=== PATIENT | female | born 1970 | race Caucasian/White ===

== ENCOUNTER 2025-07-10 08:55 | Emergency (ER) | payer MEDICAID, SELFPAY ==
[2025-07-10 08:57] VITALS: BMI 27.4
[2025-07-10 09:12] VITALS: BP 137/94; PULSE 91; RESP 16; TEMP 36.8; O2SAT 96
--- NOTE | 2025-07-10 09:30 | EDRME_ITS ---
Rapid Medical Screening Exam FORMERLY [facility], [facility] Arrival date/time: 07/10/25 08:55 Chief Complaint: Abdominal Pain Time Seen by Provider: 07/10/25 09:22 Vital signs: Vital Signs Temperature 98.3 F 07/10/25 09:12 Pulse Rate 91 07/10/25 09:12 Respiratory Rate 16 07/10/25 09:12 Blood Pressure 137/94 H 07/10/25 09:12 Pulse Oximetry (%) 96 07/10/25 09:12 Oxygen Delivery Method Room Air 07/10/25 09:12 E Narrative: 54-year-old female complaining of 1 week of abdominal pain and cramping. Had diarrhea and fever approximately 1 week ago. With intermittent cramping since. However today had a very sharp pain and had to blood clots from her rectum,. No history of bowel surgery. Last fever was 7 days ago. No longer vomiting. Exam: Diffuse TTP Clinical Impression: Diverticulitis versus colitis versus infectious diarrhea
--- NOTE | 2025-07-10 09:31 | XR_ITS ---
Examination: CT abdomen with intravenous contrast CT pelvis with intravenous contrast 2-D coronal reconstructions 2-D sagittal reconstructions Date and time of exam: July 10, 2025, 1243 hours INDICATIONS: Left lower abdominal pain diarrhea and rectal bleeding today COMPARISON: November 24, 2017. CTDI: vol (mGy) 13.1 DLP: (mGycm) 703 Technique: Multiple axial sections of the abdomen and pelvis have been obtained. 64 slice high-resolution scanner used. 3 mm axial sections have been obtained, post intravenous injection 60 cc Isovue 370 2-D sagittal, coronal reconstructions obtained. Low dose protocols were performed. One or more of the following dose reduction techniques were used; automated exposure control, adjustment of the mA and/or KV according to patient size, use of iterative reconstruction technique. Findings: 15 mm splenic lesion Liver is mildly irregular in contour No gallstones No pancreatic or adrenal mass Moderate renal scarring Minimal dilatation calyces left kidney minimal wall thickening left ureter, no ureteral calculi Normal appendix Scattered colonic diverticulosis, no diverticulitis There is a nonspecific colitis pattern involving rectosigmoid and rectum, proctitis No pelvic mass Urinary bladder intact Significant osteopenia with advanced degenerative disc disease L4-L5 IMPRESSION: Recommend splenic ultrasound to assess the 15 mm splenic lesion Suspicious for left urinary tract infection Normal appendix Significant nonspecific colitis pattern involving rectosigmoid as well as proctitis pattern
[2025-07-10 09:56] LABS: Basophils # (Auto) 0.1 Thou/mm3 (0.0-0.2); Basophils % (Auto) 1 % (0-2.5); Eosinophils # (Auto) 0.2 Thou/mm3 (0.0-0.5); Eosinophils % (Auto) 4 % (0-10); Hematocrit 46.1 % (36.0-46.0); Hemoglobin 15.3 g/dL (12.0-16.0); Immature Granulocytes Auto 0.01 Thou/mm3 (0.00-0.00); Lymphocytes # (Auto) 1.3 Thou/mm3 (1.0-4.8); Lymphocytes % (Auto) 25 % (10-50); Mean Corpuscular HGB Conc 33.2 g/dl (31.0-37.0); Mean Corpuscular Hemoglobin 29.7 pg (25.0-35.0); Mean Corpuscular Volume 90 fL (80-100); Monocytes # (Auto) 0.6 Thou/mm3 (0.0-0.8); Monocytes % (Auto) 11 % (0-12); Neutrophils # (Auto) 3.1 Thou/mm3 (1.8-7.7); Neutrophils % (Auto) 59 % (37-80); Nucleated Red Blood Cell # 0.00 Thou/mm3 (0.00-0.00); Nucleated Red Blood Cell % 0 /100 WBC (0); Platelet Count 238 Thou/mm3 (140-440); RDW Standard Deviation 42.8 fL (36.4-46.3); Red Blood Count 5.15 Miln/mm3 (4.00-5.20); White Blood Count 5.3 Thou/mm3 (3.6-11.0)
[2025-07-10 10:15] LABS: Alanine Aminotransferase 21 U/L (10-49); Albumin, Serum 5.0 gm/dL (3.5-5.0); Albumin/Globulin Ratio 1.9 (1.2-2.2); Alkaline Phosphatase 76 U/L (46-116); Anion Gap 9 (7-16); Aspartate Amino Transferase 28 U/L (0-34); BUN/Creatinine Ratio 11 Ratio (12-20); Bilirubin,Total 0.7 mg/dL (0.3-1.2); Blood Urea Nitrogen 17 mg/dL (9-23); Calcium 9.8 mg/dL (8.3-10.6); Calcium (Corrected) 9.8 mg/dL (8.5-10.1); Carbon Dioxide 30.6 mMol/L (20.0-31.0); Chloride 102 mMol/L (98-107); Creatinine (Component) 1.5 mg/dL (0.6-1.3); Estimated Creatinine Clearance 42.4 mL/min (>60); Globulin 2.7 gm/dL (2.3-3.5); Glucose 92 mg/dL (74-106); Lipase 34 U/L (12-53); Osmolality,Calculated 284 (275-295); Potassium 4.2 mMol/L (3.4-5.1); Sodium 142 mMol/L (136-145); Total Protein 7.7 gm/dL (5.7-8.2); eGFR 41 See Note
[2025-07-10 11:40] VITALS: BP 148/92; BP 151/87; BP 156/94; BP 177/113; PULSE 70; PULSE 71; PULSE 76; PULSE 85; RESP 18; TEMP 36.4; O2SAT 99
[2025-07-10 12:00] LABS: INR 1.0 (0.9-1.3); Prothrombin Time 10.2 Seconds (9.0-12.2)
--- NOTE | 2025-07-10 12:02 | PD.EDGIBLD ---
ED GI Bleed RME/HPI General Chief complaint: Abdominal Pain Stated complaint: BLOOD IN STOOL Time Seen by Provider: 07/10/25 09:22 Arrival date/time: 07/10/25 08:55 Limitations: no limitations RME / HPI RME / HPI Narrative: 54-year-old female complaining of 1 week of abdominal pain and cramping. Had diarrhea and fever approximately 1 week ago. With intermittent cramping since. However today had a very sharp pain and had to blood clots from her rectum,. No history of bowel surgery. Last fever was 7 days ago. No longer vomiting. DR. [facility] MAIN ED EVALUATION: 54-year-old female presents after having 2 bowel movements with blood in the stool today. She reports no abdominal pain, no fever, and she is not on blood thinners. No other complaints. Past medical history includes hypertension, COPD, active smoking, and a remote history of hemorrhoids a few years ago. Related Data Previous Rx's ?Medication ?Instructions ?Recorded hydrocortisone acetate 25 mg 25 mg [place] BID #24 ea 10/07/20 rectal suppository (Anusol-HC) prednisone 50 mg tablet 50 mg PO QDAY #5 tabs 07/10/23 Allergies Allergy/AdvReac Type Severity Reaction Status Date / Time acetaminophen (From [facility]) Allergy Difficulty Verified 07/22/22 06:40 Breathing hydrocodone (From [facility]) Allergy Difficulty Verified 07/22/22 06:40 Breathing Review of Systems Review of Systems Systems Reviewed: All systems reviewed, normal except as documented Past Medical History Past Medical History CARDIAC: Positive Hypertension GENITOURINARY: Positive Kidney Stones PSYCHO/SOCIAL: Positive Depression Social History SMOKING STATUS: Never smoker SUBSTANCE USE: does not use ALCOHOL: Never ED Exam General Limitations: Present no limitations General appearance: Present alert and in no apparent distress Head Head exam: Present atraumatic, normocephalic and normal inspection Eye Eye exam: Present normal appearance, PERRL and EOMI ENT ENT exam: Present normal exam, normal oropharynx and mucous membranes moist Neck Neck exam: Present normal inspection, full ROM and trachea midline Chest Chest inspection: Present normal inspection and symmetric chest wall rise Respiratory Respiratory exam: Present normal lung sounds bilaterally Cardiovascular Cardiovascular exam: Present regular rate, normal rhythm and normal heart sounds Abdominal Exam Abdominal exam: Present soft and normal bowel sounds Extremities Exam Extremities exam: Present normal inspection and full ROM Back Exam Back exam: Present normal inspection and full ROM Neurological Exam Neurological exam: Present alert, oriented X3 and CN II-XII intact Psychiatric Psychiatric exam: Present normal affect and normal mood Skin Skin exam: Present warm, dry, intact and normal color Course Quality Measures none Orders Category Date Time Status CT Screening NOW Care 07/10/25 09:33 Completed IV [Insert IV] NOW Care 07/10/25 09:31 Completed Orthostatic Vitals NOW Care 07/10/25 11:[address] abdomen pelvis w con Stat Exams 07/10/25 09:31 Completed CBC Stat Lab 07/10/25 09:46 Completed CMP [Comprehensive Metabolic Panel] Stat Lab 07/10/25 09:46 Completed Lipase Stat Lab 07/10/25 09:46 Completed Prothrombin Time with INR Stat Lab 07/10/25 09:46 Completed Sodium Chloride 0.9% 1000 ml [Ns] 1,000 ml Med 07/10/25 09:34 Discontinued IV 999 mls/hr Sodium Chloride 0.9% 1000 ml [Ns] 1,000 ml Med 07/10/25 11:32 Discontinued IV 999 mls/hr Vital Signs Vital signs: Vital Signs Temperature 98.3 F 07/10/25 09:12 Pulse Rate 91 07/10/25 09:12 Respiratory Rate 16 07/10/25 09:12 Blood Pressure 137/94 H 07/10/25 09:12 Pulse Oximetry (%) 96 07/10/25 09:12 Oxygen Delivery Method Room Air 07/10/25 09:12 GI Bleed MDM Narrative MDM Narrative:: IDia am scribing for and in the presence of Dr. North. 54-year-old female with two episodes of blood in stool without abdominal pain or fever. Exam normal and vitals stable. Differential diagnoses include lower GI bleed, hemorrhoidal bleeding, and malignancy. Impression is GI bleed. CT scan, blood work, orthostatic vitals, and IV fluids planned. Patient stable for continued evaluation. Plan to discharge home with acute lower GI bleed, diverticulosis, and .rectosigmoiditis Patient data External records reviewed:: [facility] previous records Clinical information provided by:: patient Social determinants that could affect healthcare access:: none Patient has the following chronic illnesses:: Past medical history includes hypertension, COPD, active smoking, and a remote history of hemorrhoids a few years ago. How is presenting disease/condition affected by chronic disease/condition?: exacerbated by Evaluation data The following diagnostics were reviewed and interpreted by me:: lab results and radiology exam(s) Lab and/or radiology exams considered but not ordered:: none Interpretation Summary: See MDM narrative above. RADIOLOGY Procedure(s): CT abdomen pelvis w con Accession Number(s): [id number] cc: Pippa Reinoso PA-C; Gian Motley MD; Arnaud Rodriguez MD~ Examination: CT abdomen with intravenous contrast CT pelvis with intravenous contrast 2-D coronal reconstructions 2-D sagittal reconstructions Date and time of exam: July 10, 2025, 1243 hours INDICATIONS: Left lower abdominal pain diarrhea and rectal bleeding today COMPARISON: November 24, 2017. CTDI: vol (mGy) 13.1 DLP: (mGycm) 703 Technique: Multiple axial sections of the abdomen and pelvis have been obtained. 64 slice high-resolution scanner used. 3 mm axial sections have been obtained, post intravenous injection 60 cc Isovue 370 2-D sagittal, coronal reconstructions obtained. Low dose protocols were performed. One or more of the following dose reduction techniques were used; automated exposure control, adjustment of the mA and/or KV according to patient size, use of iterative reconstruction technique. Findings: 15 mm splenic lesion Liver is mildly irregular in contour No gallstones No pancreatic or adrenal mass Moderate renal scarring Minimal dilatation calyces left kidney minimal wall thickening left ureter, no ureteral calculi Normal appendix Scattered colonic diverticulosis, no diverticulitis There is a nonspecific colitis pattern involving rectosigmoid and rectum, proctitis No pelvic mass Urinary bladder intact Significant osteopenia with advanced degenerative disc disease L4-L5 IMPRESSION: Recommend splenic ultrasound to assess the 15 mm splenic lesion Suspicious for left urinary tract infection Normal appendix Significant nonspecific colitis pattern involving rectosigmoid as well as proctitis pattern Dictated By: Arnaud Rodriguez MD Medications / Prescriptions Medications or Prescriptions considered but not ordered:: none Medication administrations:: Medication Administration History Discontinued Medications Sodium Chloride (Ns) 1,000 mls @ 999 mls/hr IV .Q1H1M ONE Stop: 07/10/25 10:34 Last Infusion: 07/10/25 14:52 Dose: Infused Documented By: Admin: 07/10/25 12:10 Dose: 999 mls/hr Documented By: MANI Sodium Chloride (Ns) 1,000 mls @ 999 mls/hr IV .Q1H1M ONE Stop: 07/10/25 12:32 Last Infusion: 07/10/25 14:52 Dose: Infused Documented By: Admin: 07/10/25 12:11 Dose: 999 mls/hr Documented By: MANI see above Consultations Consultation(s) initiated? (list below): No Diagnosis GI bleed differential diagnosis: other (lower GI bleed, hemorrhoidal bleeding, and malignancy) Most likely diagnosis given after review of the tests above:: Acute lower GI bleed Diverticulosis Rectosigmoiditis Admission Indicated Admission indicated?: not indicated Admission Request Was there a request for admission?: No Disposition Plan Disposition Plan: Discharge Discharge Attestation Discharge Attestation: The patient and all family members were given an opportunity to ask questions and understood the discharge instructions. Discharge instructions specifically effects, indications for sooner follow up or return to the emergency department, and the expected course of current diagnosis. Patient condition: Stable Discharge Plan Plan Patient Disposition: HOME (Self Care) Patient condition on transfer: Stable Prescriptions/Referrals Prescriptions/Med Rec: No Action hydrocortisone acetate [Anusol-HC] 25 mg suppository 25 mg [place] BID Qty: 24 0RF prednisone 50 mg tablet 50 mg PO QDAY Qty: 5 0RF Referrals: Gian Motley MD [Primary Care Provider, Family Practice] - In 1 week Jason Chavez MD [Physician, Gastroenterology] - In 1 week Referral Note: Make sure to see the gastrointestinal doctor to get a colonoscopy within the next week Clinical Impression: Diverticulosis; Rectosigmoiditis; Acute lower gastrointestinal bleeding Problem List Clinical Impression: Acute lower gastrointestinal bleeding, Diverticulosis, Rectosigmoiditis Impression comment: Make sure to see the GI doctor within a week and to get a colonoscopy within a week after There is a lesion in the rectosigmoid area which is unknown to us whether it is a tumor or not and the only way to find out is to get a colonoscopy and a biopsy of that area to make sure is not a cancer of the colon Patient/Caregiver Discharge Instructions Education Materials: Bleeding Gastrointestinal, ED Diverticulosis Print Language: Kinyarwanda Stand Alone Forms: [facility]adege Award Info., Patient Portal Info Letter
[2025-07-10] MEDS: SODIUM CHLORIDE 0.9% 1000 ML 1,000 ML 999 ML IV ×2 (12:10→12:11)
[2025-07-10 14:04] VITALS: BP 171/96; PULSE 85; RESP 17; TEMP 36.5; O2SAT 98
== END 2025-07-10 14:53 | disposition home or self-care (01) ==
PROVIDERS: Physician Assistant; Emergency Provider Emergency Medicine; PCP Family Medicine
DX: K57.31 Diverticulosis of large intestine without perforation or abscess with bleeding (principal); K63.89 Other specified diseases of intestine
CPT/HCPCS: 36415; 74177; 80053; 80307; 81001; 83690; 85025; 85610; 99283; A4649; J7030; Q9967